=== PATIENT | female | born 1970 | race Caucasian/White ===

== ENCOUNTER 2021-07-13 16:14 | Emergency (ER) | payer SELFPAY ==
[2021-07-13] MEDS ORDERED: Acetaminophen 500 MG TAB ONE (17:06)
== END 2021-07-13 17:35 | disposition home or self-care (01) ==
LOC: MADERS 16:14
DX: F43.0 Acute stress reaction (principal); S00.03XA Contusion of scalp, initial encounter; F41.9 Anxiety disorder, unspecified; J45.909 Unspecified asthma, uncomplicated; I12.9 Hypertensive chronic kidney disease with stage 1 through stage 4 chronic kidney disease, or unspecified chronic kidney disease; E11.22 Type 2 diabetes mellitus with diabetic chronic kidney disease; N18.9 Chronic kidney disease, unspecified
CPT/HCPCS: 93005; 99283